=== PATIENT | male | born 1995 | race Hispanic/Latino ===

== ENCOUNTER 2018-12-04 18:28 | Emergency (ER) | payer OTHER ==
[~2018-12-04] VITALS: Ht 175.3 cm; Wt 77.1 kg
--- NOTE | 2018-12-04 19:11 | NUR ---
REPORT TO REJI THOMPSON
--- NOTE | 2018-12-04 19:54 | Diagnostic Imaging Report ---
Left shoulder 3 - views HISTORY: Pain status post trauma. COMPARISON: None FINDINGS: No displaced fracture. Osseous alignment is within normal limits. The joint spaces are well-maintained. The soft tissues appear unremarkable. IMPRESSION: No acute radiographic abnormality. Signed by: Dr. Maria Isabel Galeana M.D. on 12/04/2018 7:51 PM
[2018-12-04 21:52] VITALS: BP 168/84
== END 2018-12-04 20:30 | disposition home or self-care (01) ==
LOC: FSED 18:28
DX: S40.012A Contusion of left shoulder, initial encounter (principal); W17.89XA Other fall from one level to another, initial encounter; Y93.51 Activity, roller skating (inline) and skateboarding; Y92.318 Other athletic court as the place of occurrence of the external cause
CPT/HCPCS: 99283